=== PATIENT | female | born 1940 | race Caucasian/White ===

== ENCOUNTER → 2016-09-20 | Outpatient (CLI) | payer OTHER, MEDICARE | LOC: MMPC 09:00 | PROVIDERS: ATTEND Family Medicine | DX: Z79.01 Long term (current) use of anticoagulants (principal); Z51.81 Encounter for therapeutic drug level monitoring; I48.91 Unspecified atrial fibrillation | CPT/HCPCS: 85610 ==

== ENCOUNTER → 2016-10-16 | Outpatient (CLI) | payer OTHER, MEDICARE ==
--- NOTE | 2016-10-16 11:00 | EKG ---
[address] [place] [address] Measurements Intervals [place] Rate: 62 P: [place]: 0 QRS: 69 QRSD: 86 T: 72 QT: 393 QTc: 398 Interpretive Statements ATRIAL FIBRILLATION MODERATE ST DEPRESSION,DIGITALIS EFFECT Compared to ECG 05/29/2016 09:18:24 ST (T wave) deviation now present Electronically Signed On 10-17-16 11:54:14 MST by Jose Gaines [id number]
== END ==
LOC: MOB EKG 10:47
PROVIDERS: ATTEND Specialist
DX: I48.0 Paroxysmal atrial fibrillation (principal)
CPT/HCPCS: 93005; 93010; 99213

== ENCOUNTER → 2016-10-18 | Outpatient (CLI) | payer OTHER, MEDICARE ==
--- NOTE | 2016-10-18 11:42 | EKG ---
[address] [address] Measurements Intervals [place] Rate: 56 P: [place]: 0 QRS: 80 QRSD: 93 T: 78 QT: 417 QTc: 408 Interpretive Statements ATRIAL FIBRILLATION ST DEPRESSION, DIGITALIS EFFECT LOW VOLTAGE Compared to ECG 10/16/2016 11:01:36 No significant changes Electronically Signed On 10-18-16 14:59:14 MST by Jose Gaines [id number]
== END ==
LOC: MOB EKG 10:23
PROVIDERS: ATTEND Specialist
DX: I48.91 Unspecified atrial fibrillation (principal)
CPT/HCPCS: 85610; 93005; 93010

== ENCOUNTER → 2016-10-25 | Outpatient (CLI) | payer OTHER, MEDICARE | LOC: MMPC 09:00 | PROVIDERS: ATTEND Family Medicine | DX: Z79.01 Long term (current) use of anticoagulants (principal); Z51.81 Encounter for therapeutic drug level monitoring; I48.91 Unspecified atrial fibrillation | CPT/HCPCS: 85610 ==

== ENCOUNTER → 2016-11-01 | Outpatient (CLI) | payer OTHER, MEDICARE | LOC: MMPC 09:00 | PROVIDERS: ATTEND Family Medicine | DX: Z79.01 Long term (current) use of anticoagulants (principal); Z51.81 Encounter for therapeutic drug level monitoring; I48.91 Unspecified atrial fibrillation | CPT/HCPCS: 85610 ==

== ENCOUNTER → 2016-11-15 | Outpatient (CLI) | payer OTHER, MEDICARE | LOC: MMPC 09:00 | PROVIDERS: ATTEND Family Medicine | DX: R63.4 Abnormal weight loss (principal); I10 Essential (primary) hypertension | CPT/HCPCS: 99213; G0463 ==

== ENCOUNTER → 2016-11-27 | Outpatient (CLI) | payer OTHER, MEDICARE ==
--- NOTE | 2016-11-27 11:38 | EKG ---
[address] [address] Measurements Intervals [place] Rate: 57 P: [place]: 0 QRS: 4 QRSD: 75 T: 46 QT: 423 QTc: 418 Interpretive Statements ATRIAL FIBRILLATION MODERATE ST DEPRESSION PROBABLY DIGITALIS EFFECT Compared to ECG 10/18/2016 10:51:58 No significant changes Electronically Signed On 11-27-16 13:04:59 MDT by Jose Gaines [id number]
== END ==
LOC: MOB LAB 10:41
PROVIDERS: ATTEND Specialist
DX: I49.9 Cardiac arrhythmia, unspecified (principal)
CPT/HCPCS: 85610; 93005; 93010

== ENCOUNTER → 2016-12-27 | Outpatient (CLI) | payer OTHER, MEDICARE | LOC: MMPC 09:00 | PROVIDERS: ATTEND Family Medicine | DX: Z79.01 Long term (current) use of anticoagulants (principal); Z51.81 Encounter for therapeutic drug level monitoring; I48.91 Unspecified atrial fibrillation | CPT/HCPCS: 85610 ==

== ENCOUNTER → 2017-01-24 | Outpatient (CLI) | payer OTHER, MEDICARE | LOC: MMPC 09:00 | PROVIDERS: ATTEND Family Medicine | DX: Z79.01 Long term (current) use of anticoagulants (principal); Z51.81 Encounter for therapeutic drug level monitoring; I48.91 Unspecified atrial fibrillation | CPT/HCPCS: 85610 ==

== ENCOUNTER → 2017-02-21 | Outpatient (CLI) | payer OTHER, MEDICARE | LOC: MMPC 09:00 | PROVIDERS: ATTEND Family Medicine | DX: Z79.01 Long term (current) use of anticoagulants (principal); Z51.81 Encounter for therapeutic drug level monitoring; I48.91 Unspecified atrial fibrillation | CPT/HCPCS: 85610 ==

== ENCOUNTER → 2017-03-21 | Outpatient (CLI) | payer OTHER, MEDICARE | LOC: MMPC 09:00 | PROVIDERS: ATTEND Family Medicine | DX: Z79.01 Long term (current) use of anticoagulants (principal); Z51.81 Encounter for therapeutic drug level monitoring; I48.91 Unspecified atrial fibrillation | CPT/HCPCS: 85610 ==

== ENCOUNTER → 2017-04-02 | Outpatient (CLI) | payer OTHER, MEDICARE ==
--- NOTE | 2017-04-02 10:20 | EKG ---
[address] [place] [address] Measurements Intervals [place] Rate: 48 P: [place]: 0 QRS: 62 QRSD: 84 T: 76 QT: 404 QTc: 370 Interpretive Statements ATRIAL FIBRILLATION WITH SLOW VENTRICULAR RESPONSE POSSIBLE RIGHT VENTRICULAR CONDUCTION DELAY [RSR (QR) IN V1/V2] MODERATE ST DEPRESSION [0.05+ mV ST DEPRESSION] Compared to ECG 11/27/2016 11:05:37 No significant changes Electronically Signed On 04-02-17 11:02:07 MDT by Jose Gaines [id number]
== END ==
LOC: MOB EKG 10:02
PROVIDERS: ATTEND Specialist
DX: I48.2 Chronic atrial fibrillation (principal); I10 Essential (primary) hypertension; Z79.01 Long term (current) use of anticoagulants
CPT/HCPCS: 93005; 93010; 99213; G0463

== ENCOUNTER → 2017-04-18 | Outpatient (CLI) | payer OTHER, MEDICARE | LOC: MMPC 09:00 | PROVIDERS: ATTEND Family Medicine | DX: Z79.01 Long term (current) use of anticoagulants (principal); Z51.81 Encounter for therapeutic drug level monitoring; I48.91 Unspecified atrial fibrillation | CPT/HCPCS: 85610 ==

== ENCOUNTER 2018-03-21 12:14 | Observation (INO) ==
[2018-03-21] MEDS ORDERED: ONDANSETRON 4 MG/2 ML VIAL IVP PRN (13:08)
[2018-03-21] MEDS ORDERED: LIDOCAINE W/ SODIUM BICARB 0.5 ML SYR SUBD PRN (13:08)
--- NOTE | 2018-03-21 13:14 | PDOC ---
HPI - History of Present Illness Date of Service: 03/21/18 Time of Service: 13:00 Chief Complaint: Diarrhea for a few days History of Present Illness: This is a 77 years old female with medical history significant for history of atrial fibrillation, hypertension and history of essential tremor who was sent from the office to the hospital because of diarrhea. She said a week ago she started to have diarrhea multiple times worse on the weekend there was no blood. On Saturday she had abdominal pain diffuse went to the urgent clinic and they gave her fluid she was discovered to have a low potassium and the LFTs were high they discharged her on anti-emetics and potassium and follow-up with Dr. Starr. She said that after the fluids she did okay on Saturday and Saturday there was no diarrhea last night after supper she said she had some scrambled egg and after that she started to have diarrhea she had like 3 or 4 times. No abdominal pain. She went to see Dr. Starr and he believed that she was dehydrated and was sent to the hospital. Apart from feeling weak she is denying abdominal pain denying fever. She did have vomiting with her illness last weekend but not last night. Past Medical History Medical History: 1. History of hypertension. 2. History of atrial fibrillation. 3. History of essential tremor. 4. History of endometriosis in the past Surgical History: 1. History of cholecystectomy. 2. History of hysterectomy. 3. History of bunion surgery before. 4. History of varicose vein surgery before. 5. History of tonsillectomy Family History: Reviewed an Not Pertinent Past Social History: Does not smoke does not drink no drugs. Lives with her Tobacco Use: Never Smoker In the Past 12 Months, Have Used or Abuse Any of the Following Substance: None Alcohol Use: None Medication / Allergies Home Medications: Home Medications 3 Medication Instructions Recorded Confirmed Type Systane Liquid Gel Eye Drops 15 ml OP BID 10/19/11 03/21/18 History Warfarin Sodium 1 tab PO DAILY #30 tab 02/25/17 03/21/18 Rx Clobetasol Propionate 45 gm TP BID #1 tube 05/09/17 03/21/18 Clinic Furosemide 20 mg PO DAILY #90 tab 05/09/17 03/21/18 Clinic Lisinopril 20 mg PO DAILY #90 tab 05/09/17 03/21/18 Clinic potassium chloride ER 10 mEq 10 meq PO QDAY #90 tab 10/21/17 03/21/18 Rx tablet,extended release cetirizine 10 mg tablet 5 mg PO QDAY PRN 03/21/18 03/21/18 History ondansetron 4 mg disintegrating 4 mg PO Q8H PRN tab 03/21/18 03/21/18 History tablet propranolol ER 160 mg capsule,24 160 mg PO QD #90 cap 03/21/18 03/21/18 Rx hr,extended release Allergies/Adverse Reactions: Allergies 3 Allergy/AdvReac Type Severity Reaction Status Date / Time ibuprofen [From Advil] Allergy HIVES Verified 03/21/18 15:30 Penicillins Allergy HIVES Verified 03/21/18 15:29 Review of Systems - Review of Systems All Systems: Reviewed & No Additional Complaints Except as Stated Exam - General General Appearance: No Acute Distress, Cooperative, Thin - Head Head Exam: Normal Inspection - Eye Eye Exam: POSITIVE: Normal Appearance - ENT ENT Exam: POSITIVE: Normal Exam - Neck Neck Exam: Normal Inspection - Respiratory Respiratory Exam: POSITIVE: Clear to Auscultation - Bilaterally - Cardiovascular Cardiovascular Exam: POSITIVE: RRR - GI/Abdominal GI/Abdominal Exam: POSITIVE: Normal Bowel Sounds, Non Tender, Non Distended, Soft, No Organomegaly - Rectal Rectal Exam: POSITIVE: Deferred - External Exam: POSITIVE: Deferred Results - Labs CBC and BMP: 03/21/18 13:28 03/22/18 04:27 Assessment and Plan - Patient Problems (1) Diarrhea Current Visit: Yes Status: Acute Comment: I think we'll send stools studies will write for IV fluid I think she looks dehydrated. Because of elevated LFTs on Saturday will recheck it again we' ll see what her numbers today probably will do a CAT scan of her abdomen. Code(s): R19.7 - Diarrhea, unspecified (2) Benign familial tremor Current Visit: No Status: Acute Onset Date: 04/15/12 Comment: Same meds Code(s): G25.0 - Essential tremor (3) Atrial fibrillation Current Visit: No Status: Acute Onset Date: 10/25/16 Comment: Continue propranolol and Warfarin Code(s): I48.91 - Unspecified atrial fibrillation
[2018-03-21 13:36] LABS: BASOPHILS # (AUTO) 0.06 10*3/UL; BASOPHILS % (AUTO) 0.8 % (0-1); EOSINOPHILS # (AUTO) 0.28 10*3/UL; EOSINOPHILS % (AUTO) 3.5 % (0-8); Hematocrit [HCT] 48.2 % (37.0-47.0); Hemoglobin [HGB] 16.3 g/dL (12.0-16.0); LYMPHOCYTES # (AUTO) 2.21 10*3/uL; MEAN CORPUSCULAR HEMOGLOBIN 29.6 PG (27-31); MEAN CORPUSCULAR HGB CONC 33.8 g/dL (33-37); MEAN CORPUSCULAR VOLUME 87.6 FL (81-99); MEAN PLATELET VOLUME 9.8 FL (7.4-12.2); MONOCYTES # (AUTO) 0.51 10*3/UL (0.3-0.8); MONOCYTES % (AUTO) 6.5 % (5-15); NEUTROPHILS # (AUTO) 4.71 10*3/UL; NEUTROPHILS % (AUTO) 59.6 % (50-80)
[2018-03-21 13:44] LABS: PLATELET MORPHOLOGY COMMENT NORMAL MORPHOLOGY (NORM); RBC MORPHOLOGY COMMENT NORMAL MORPHOLOGY (NORM); WBC MORPHOLOGY COMMENT NORMAL MORPHOLOGY (NORM)
[2018-03-21] MEDS ORDERED: Pneumococcal Vacc 13 Syringe 0.5 ML DISP.SYRIN IM ONE (13:56)
[2018-03-21 14:02] LABS: BLOOD UREA NITROGEN 15 mg/dL (7-22); SERUM ALBUMIN 3.6 g/dL (3.5-4.8)
[2018-03-21 14:20] LABS: BILIRUBIN,URINE NEGATIVE (NEG); CLARITY,URINE CLEAR (CLEAR); COLOR,URINE YELLOW (Y); GLUCOSE, URINE (UA) NEGATIVE (NEG); OCCULT BLOOD,URINE NEGATIVE (NEG); PH,URINE 5.5 (5.0-8.5); PROTEIN,URINE NEGATIVE (NEG); UROBILINOGEN,URINE 0.2 EU/dL (0.2)
[2018-03-21 14:26] LABS: URINE SAMPLE TYPE CLEAN CATCH URINE
[2018-03-21] MEDS: Sodium Chloride 0.9% 1,000 ML PRIMARY IV SCH (14:31)
[2018-03-21] MEDS ORDERED: Potassium Chloride Tab 10 MEQ TAB PO SCH (15:00)
--- NOTE | 2018-03-21 16:47 | DI ---
CT Abdomen/Pelvis WO Contrast,03/21/2018 2:45 PM: Clinical History: History abdominal pain and elevated liver function tests. Previous Exam: None at this facility. Findings: Multiple helically acquired CT images are obtained through the abdomen and pelvis following a CT ston e protocol. There is no free fluid. The urinary bladder is unremarkable. The distal ureters are normal. There are multiple colonic diverticula noted without evidence of acute diverticulitis. There are multiple scattered shotty mesenteric lymph nodes without evidence of lymphadenopathy. Patie nt is status post cholecystectomy. The liver, spleen, adrenals, kidneys and pancreas are unremarkable. Diffuse degenerative changes of the spine are noted. The lung bases are clear. A few coronary artery calcifications are seen. The anterior abdominal wall subcutaneous fat is normal. Impression: No acute intra-abdominal pathology no findings to explain elevated liver function tests.
[2018-03-21] MEDS ORDERED: Warfarin Tab 2.5 MG TAB PO SCH ×3 (18:45→21:00)
[2018-03-22] MEDS: Sodium Chloride 0.9% 1,000 ML PRIMARY IV SCH ×2 (00:02→08:31)
[2018-03-22 05:49] LABS: BLOOD UREA NITROGEN 16 mg/dL (7-22); BUN/CREATININE RATIO 17.77 (6-20); SERUM ALBUMIN 2.8 g/dL (3.5-4.8)
[2018-03-22] MEDS ORDERED: Potassium Chloride Tab 10 MEQ TAB PO SCH (07:30)
[2018-03-22 07:46] VITALS: BP 144/75; RESP 20; TEMP 97.8; O2SAT 95
[2018-03-22] MEDS: Propranolol Tab 40 MG TAB PO SCH ×2 (08:31→08:48)
--- NOTE | 2018-03-22 08:52 | DCSUMMARY ---
Hospitalization Summary Admit Date: 03/21/2018 Discharge Date: 03/22/18 Hospital Course: Discharge diagnoses 1. Gastroenteritis resolved 2. History of A. fib 3. History of hypertension 4. History of essential tremor 5. Diverticulosis without diverticulitis on CT Hospital course This is a 77 years old female with medical history significant for history of atrial fibrillation, hypertension and history of essential tremor who was sent from the office to the hospital because of diarrhea. She said a week ago she started to have diarrhea multiple times worse on the weekend there was no blood. On Saturday she had abdominal pain diffuse went to the urgent clinic and they gave her fluids she was discovered to have a low potassium and the LFTs were high, she was discharged on anti-emetics and potassium and follow-up with Dr. Starr. She did say after receiving the fluids she did okay on Saturday and Saturday as there was no diarrhea. On the night before admission, after having scrambled eggs for supper she started to have diarrhea again may be 3-4 times. No abdominal pain. She saw Dr. Starr on the day of admission he found her to be dehydrated so she was admitted to the hospital. Exam when I saw her apart from dehydration was unremarkable. We gave her some IV fluid labs showed elevated LFTs the next day LFTs were trending down. A CT of the abdomen showed diverticulosis no diverticulitis otherwise negative. I did send hepatitis screen and they were pending. the next day she was feeling better she did not have more diarrhea did not even give a sample to send the stool for testing. We thought she could be discharged and home follow-up with Dr. Starr as an outpatient. We did increase her potassium as her was potassium was still low at 3.3. Need to be rechecked again when she follow-up with Dr. Starr. Laboratory Results 03/21/18 03/21/18 03/21/18 Range/Units 13:28 13:28 13:28 WBC 7.90 (4.8-10.8) 10^3/uL RBC 5.50 H (4.20-5.40) 10^6/uL Hgb 16.3 H (12.0-16.0) g/dL Hct 48.2 H (37.0-47.0) % MCV 87.6 (81-99) FL MCH 29.6 (27-31) PG MCHC 33.8 (33-37) g/dL RDW Std Deviation 46.3 (39-50) fL RDW Coeff of Tony 14.5 (11.5-14.5) % Plt Count 276 (140-350) 10*3/uL MPV 9.8 (7.4-12.2) FL Immature Gran % (Auto) 1.6 (0-5) % Neut % (Auto) 59.6 (50-80) % Lymph % (Auto) 28.0 (10-50) % [place] % (Auto) 6.5 (5-15) % Eos % (Auto) 3.5 (0-8) % Baso % (Auto) 0.8 (0-1) % Immature Gran # (Auto) 0.13 10*3/UL Neut # (Auto) 4.71 10*3/UL Lymph # (Auto) 2.21 10*3/uL [place] # (Auto) 0.51 (0.3-0.8) 10*3/UL Eos # (Auto) 0.28 10*3/UL Baso # (Auto) 0.06 10*3/UL WBC Morphology Comment Normal morphology (NORM) Plt Morphology Comment Normal morphology (NORM) RBC Morph Comment Normal morphology (NORM) PT 21.1 H (9.7-11.4) secs INR 1.98 (0.00-5.90) N/A Sodium 140 (135-145) meq/L Potassium 3.6 L (3.8-5.2) meq/L Chloride 104 (98-112) meq/L Carbon Dioxide 27 (23-33) meq/L Anion Gap 9 (5-20) BUN 15 (7-22) mg/dL Creatinine 1.0 (0.50-1.20) mg/dL BUN/Creatinine Ratio 15.00 (6-20) Glucose 88 (78-110) mg/dL Calculated Osmolality 289.0 (267-292) mOsm/kg Calcium 9.0 (8.7-10.7) mg/dL Total Bilirubin 1.1 (0.3-1.2) mg/dL AST 67 H (8-39) IU/L ALT 188 H (9-52) IU/L Alkaline Phosphatase 151 H (38-126) IU/L Total Protein 6.1 (6.1-8.0) g/dL Albumin 3.6 (3.5-4.8) g/dL Globulin 2.4 L (2.50-4.10) g/dL Albumin/Globulin Ratio 1.50 (1.3-2.0) mg/g Ur Collection Type Urine Color (Y) Urine Clarity (CLEAR) Urine pH (5.0-8.5) Ur Specific [place] (1.005-1.030) Urine Protein (NEG) mg/dl Urine Glucose (UA) (NEG) mg/dL Urine Ketones (NEG) Urine Occult Blood (NEG) Urine Nitrate (NEG) Urine Bilirubin (NEG) Urine Urobilinogen (0.2) EU/dL Ur Leukocyte Esterase (NEG) Ur Culture Indicated? 03/21/18 03/22/18 Range/Units 14:09 04:27 WBC (4.8-10.8) 10^3/uL RBC (4.20-5.40) 10^6/uL Hgb (12.0-16.0) g/dL Hct (37.0-47.0) % MCV (81-99) FL MCH (27-31) PG MCHC (33-37) g/dL RDW Std Deviation (39-50) fL RDW Coeff of Tony (11.5-14.5) % Plt Count (140-350) 10*3/uL MPV (7.4-12.2) FL Immature Gran % (Auto) (0-5) % Neut % (Auto) (50-80) % Lymph % (Auto) (10-50) % [place] % (Auto) (5-15) % Eos % (Auto) (0-8) % Baso % (Auto) (0-1) % Immature Gran # (Auto) 10*3/UL Neut # (Auto) 10*3/UL Lymph # (Auto) 10*3/uL [place] # (Auto) (0.3-0.8) 10*3/UL Eos # (Auto) 10*3/UL Baso # (Auto) 10*3/UL WBC Morphology Comment (NORM) Plt Morphology Comment (NORM) RBC Morph Comment (NORM) PT (9.7-11.4) secs INR (0.00-5.90) N/A Sodium 141 (135-145) meq/L Potassium 3.3 L (3.8-5.2) meq/L Chloride 109 (98-112) meq/L Carbon Dioxide 25 (23-33) meq/L Anion Gap 7 (5-20) BUN 16 (7-22) mg/dL Creatinine 0.9 (0.50-1.20) mg/dL BUN/Creatinine Ratio 17.77 (6-20) Glucose 82 (78-110) mg/dL Calculated Osmolality 291.0 (267-292) mOsm/kg Calcium 8.3 L (8.7-10.7) mg/dL Total Bilirubin 0.8 (0.3-1.2) mg/dL AST 41 H (8-39) IU/L ALT 127 H (9-52) IU/L Alkaline Phosphatase 113 (38-126) IU/L Total Protein 5.0 L (6.1-8.0) g/dL Albumin 2.8 L (3.5-4.8) g/dL Globulin 2.2 L (2.50-4.10) g/dL Albumin/Globulin Ratio 1.20 L (1.3-2.0) mg/g Ur Collection Type Clean catch urine Urine Color Yellow (Y) Urine Clarity Clear (CLEAR) Urine pH 5.5 (5.0-8.5) Ur Specific [place] 1.007 (1.005-1.030) Urine Protein Negative (NEG) mg/dl Urine Glucose (UA) Negative (NEG) mg/dL Urine Ketones Negative (NEG) Urine Occult Blood Negative (NEG) Urine Nitrate Negative (NEG) Urine Bilirubin Negative (NEG) Urine Urobilinogen 0.2 (0.2) EU/dL Ur Leukocyte Esterase Negative (NEG) Ur Culture Indicated? Culture not set Discharge instruction Diet regular Activity as started Medications Current Medication(s) 3 Medication Instructions Recorded Confirmed Type Systane Liquid Gel Eye Drops 15 ml OP BID 10/19/11 03/21/18 History Warfarin Sodium 1 tab PO DAILY #30 tab 02/25/17 03/21/18 Rx Clobetasol Propionate 45 gm TP BID #1 tube 05/09/17 03/21/18 Clinic Furosemide 20 mg PO DAILY #90 tab 05/09/17 03/21/18 Clinic Lisinopril 20 mg PO DAILY #90 tab 05/09/17 03/21/18 Clinic potassium chloride ER 10 mEq 10 meq PO QDAY #90 tab 10/21/17 03/21/18 Rx tablet,extended release cetirizine 10 mg tablet 5 mg PO QDAY PRN 03/21/18 03/21/18 History ondansetron 4 mg disintegrating 4 mg PO Q8H PRN tab 03/21/18 03/21/18 History tablet propranolol ER 160 mg capsule,24 160 mg PO QD #90 cap 03/21/18 03/21/18 Rx hr,extended release Potassium Chloride [Klor-Con] 20 meq PO BID MEALS tab 03/22/18 Rx Follow-up with PCP in 1-2 weeks Condition at discharge was stable discharge Exam - Vitals Vital Signs: Vital Signs Temperature 97.8 F Temperature Source Temporal Artery Scan Pulse Rate [Apical] 56 Pulse Rate [Pulse Oximeter] 55 Respiratory Rate 20 Blood Pressure [Right Arm] 144/75 Pulse Ox 95 Oxygen Delivery Method Room Air Height 5 ft 5 in Weight 148 lb 12.8 oz - General General Appearance: No Acute Distress, Cooperative, Thin - Head Head Exam: Normal Inspection - Eye Eye Exam: POSITIVE: Normal Appearance - ENT ENT Exam: POSITIVE: Normal Exam - Neck Neck Exam: Normal Inspection - Respiratory Respiratory Exam: POSITIVE: Clear to Auscultation - Bilaterally - Cardiovascular Cardiovascular Exam: POSITIVE: RRR - GI/Abdominal GI/Abdominal Exam: POSITIVE: Normal Bowel Sounds, Non Tender, Non Distended, Soft, No Organomegaly - Rectal Rectal Exam: POSITIVE: Deferred - External Exam: POSITIVE: Deferred Exam: POSITIVE: Deferred - Extremities Extremities Exam: POSITIVE: Normal Inspection - Back Back Exam: POSITIVE: Normal Inspection - Neurological Neurological Exam: POSITIVE: Alert, Oriented x 3, Normal Gait, CN II-XII Intact , No Facial Droop, Speech Intact / Clear, Moves All Extremities Equally - Psychiatric Psychiatric Exam: POSITIVE: Normal Affect Patient Problems - Patient Problem List (1) Diarrhea Status: Acute Code(s): R19.7 - Diarrhea, unspecified Category: Medical (2) Benign familial tremor Status: Acute Onset Date: 04/15/12 Code(s): G25.0 - Essential tremor Category: Medical (3) Atrial fibrillation Status: Acute Onset Date: 10/25/16 Code(s): I48.91 - Unspecified atrial fibrillation Category: Medical
[2018-03-22] MEDS ORDERED: LISINOPRIL 20 MG TABLET PO SCH (09:00)
[2018-03-22] MEDS ORDERED: PROPRANOLOL ER 60 MG CAPSULE PO SCH (09:00)
[2018-03-22] MEDS: Warfarin Tab 2.5 MG TAB PO SCH ×2 (09:05→09:30)
[2018-03-22] MEDS ORDERED: Warfarin Tab 2.5 MG TAB PO SCH ×3 (21:00)
[2018-03-25 09:41] LABS: HEP B CORE IGM ANTIBODY Negative (Negative); HEPATITIS B SURFACE AG Negative (Negative)
[2018-03-25 13:23] LABS: HEPATITIS A IGM Negative (Negative)
== END 2018-03-22 10:04 | disposition home or self-care (01) | DRG 392 ==
LOC: MED/SURG → UNDODISIN 03-22 10:04 → PREINTOOBSV 03-31 10:13
PROVIDERS: ADMIT Internal Medicine; ATTEND Internal Medicine